=== PATIENT | male | born 1945 | race Caucasian/White ===

== ENCOUNTER → 2018-07-27 15:39 | Outpatient (CLI) | payer MEDICARE, OTHER, SELFPAY ==
[2018-07-27 16:32] LABS: Alanine Aminotransferase 34 IU/L (21-72); Albumin 4.1 g/dL (3.5-5.0); Albumin Globulin Ratio 1.5 (1.0-2.8); Alkaline Phosphatase 36 U/L (38-126); Aspartate Aminotransferase 28 IU/L (17-59); BUN Creatinine Ratio 24.2 (6-22); Bilirubin Total 0.4 mg/dL (0.2-1.3); Bilirubin Unconjugated 0.3 mg/dL (0.0-1.1); Blood Urea Nitrogen 29 mg/dL (9-20); Calcium 9.8 mg/dL (8.4-10.2); Carbon Dioxide 34 mmol/L (22-32); Chloride 104 mmol/L (98-107); Estimated Glomerular Filt Rate 59.5 mL/min (>60); Globulin 2.8 g/dL (1.7-4.1); Glucose 96 mg/dL (80-110); HEMOLYSIS < 15 (0-50); Sodium 142 mmol/L (137-145); Total Protein 6.9 g/dL (6.3-8.2)
[2018-07-27 16:44] LABS: Potassium 5.5 mmol/L (3.4-5.1)
[2018-07-27 16:46] LABS: Free T4, Direct Thyroxine 1.14 ng/dL (0.78-2.19)
[2018-07-27 17:00] LABS: Thyroid Stimulating Hormone 2.54 uIU/mL (0.47-4.68)
== END ==
PROVIDERS: Visit Provider Nurse Practitioner Family
DX: I48.91 Unspecified atrial fibrillation (principal)
CPT/HCPCS: 36415; 80053; 80076; 84439; 84443

== ENCOUNTER 2021-05-02 17:46 | Emergency (ER) | payer MEDICARE, OTHER, SELFPAY ==
[2021-05-02] VITALS (19 sets, daily range): BP systolic 108–150; BP diastolic 57–107; PULSE 51–120; RESP 16–25; TEMP 36.4; O2SAT 94–99; BMI 24.1
--- NOTE | 2021-05-02 18:00 | DI.RAD.S_ITS ---
PROCEDURE: XR CHEST 1V INDICATIONS: chest pain TECHNIQUE: One view of the chest was acquired. COMPARISON: None. FINDINGS: Surgical changes and devices: None. Lungs and pleura: Lungs are clear. No pleural effusions or pneumothorax. Mediastinum: Mediastinal contours appear normal. Heart size is normal. Bones and chest wall: No suspicious bony lesions. Overlying soft tissues appear unremarkable. IMPRESSION: No acute cardiopulmonary disease. Dictated by: Wilmer Dorman M.D. on 05/02/2021 at 18:27 Approved by: Wilmer Dorman M.D. on 05/02/2021 at 18:30
--- NOTE | 2021-05-02 18:06 | ED.ARRPALP ---
HPI - Arrhythmia/Palpitations General Chief Complaint: Arrhythmia/Palpitations Stated Complaint: afib, passing out Time Seen by Provider: 05/02/21 18:05 History of Present Illness HPI narrative: 76-year-old male nonsmoker with history of atrial fibrillation is on Eliquis and has been since 2017. He has been having difficulties with his medications as of late presents today with a chief complaint of a near syncopal episode and orthostatic hypotension as observed by EMS on scene. He was cardioverted most recently on April 23 at [facility]. In the aftermath of that cardioversion he became slowly and increasingly more bradycardic at which point he was taken off of his metoprolol, few days later he started becoming slightly more tachycardic and was put back on his metoprolol 50 mg daily. Today he was feeling dizzy and lightheaded upon standing and medics found a 40 point drop in his systolic pressure upon standing. He was brought here by his for evaluation. He was no longer orthostatic in our triage room. He states that he has had a poor appetite for the past few days which may correlate with his doctor started him on Lexapro. Otherwise he has had no medication or dietary change. He denies fever or chills. He has had no nausea, vomiting or diarrhea. He denies any urinary complaints such as dysuria, frequency or urgency. He denies any chest pain or shortness of breath. He cannot tell he is in AFib currently Review of Systems Review of Systems Narrative: GENERAL: Denies chills, fatigue, malaise, fever, sweats. HEENT: Denies sinus pain, ear pain, sore throat, difficulty swallowing, dizziness. RESPIRATORY: Denies dyspnea, cough, wheezing, hemoptysis, sputum. CARDIOVASCULAR: See HPI GASTROINTESTINAL: Denies nausea, vomiting, abdominal pain, diarrhea, constipation, melena. : Denies dysuria, frequency, incontinence, hematuria, urinary retention. MUSCULOSKELETAL: denies weakness, joint pain, or bony pain SKIN: Denies rash, skin lesions, or other NEUROLOGIC: Denies weakness, headache, numbness, change in speech, confusion, seizures, incoordination. PSYCHIATRIC: No concerning psychosocial issues. 12 point review of systems is negative except for those stated above Exam Narrative Exam Narrative: GENERAL: [76 year old patient appears stated age. Well-developed patient, in mild distress. HEAD: Atraumatic. Normocephalic. EYES: Pupils equal round and reactive. Extraocular motions intact. No scleral icterus. No injection or drainage. ENT: Nose without bleeding, purulent drainage. Throat without erythema, tonsillar hypertrophy or exudate. Airway patent. NECK: Trachea midline. Non tender CARDIOVASCULAR: Tachycardic and irregular rhythm without murmurs, gallops, or rubs. RESPIRATORY: Clear to auscultation. Breath sounds equal bilaterally. No wheezes, rales, or rhonchi. GASTROINTESTINAL: Abdomen soft, non-tender, nondistended. EXTREMITIES: No edema or joint tenderness. BACK: Nontender without deformity or crepitance. No flank tenderness. NEURO: AOx3. SKIN: No rash or erythema of visible areas Initial Vital Signs Initial Vital Signs: Vital Signs Temperature 97.6 F 05/02/21 17:56 Pulse Rate 120 H 05/02/21 17:56 Respiratory Rate 16 05/02/21 17:56 Blood Pressure 108/71 05/02/21 17:56 Pulse Oximetry 97 05/02/21 17:56 Procedures Cardioversion Consent Signed: Yes Indication: rapid atrial fib / atrial flutter Stability: Stable Number of attempts (shocks): 1 Joules used: 120 Cardiac rhythm post-cardioversion: NSR in the 50s-60s Procedural Sedation Consent signed: Yes Time out performed: Yes Indication: cardioversion ASA Class: II Mallampati Airway Classification: Class II Preparation: property assessment monitor applied, pulse oximeter, capnometry used, supplemental O2 applied, suction/airway equipment at bedside and IV secured IV Propofol dose (mg): 50 Intraservice time/total sedation time (min): 12 ED Sedation Level: Moderate (Concious) Patient Tolerated Procedure: Well Complications: Respiratory Depression-Repositioning Required Interventions: Airway repositioned Course Orders Ordered: ED Orders 05/02/21 18:00 XR chest 1V Stat EKG-12 Lead Stat 05/02/21 18:10 Complete Blood Count AUTO DIFF Stat Comprehensive Metabolic Panel Stat Lipase Stat Magnesium Stat Partial Thromboplastin Time Stat Prothrombin Time INR Stat Troponin & CK Cardiac Panel Stat Discontinued Medications Sodium Chloride (Normal Saline 0.9%) 500 mls @ 1,000 mls/hr IV BOLUS ONE Stop: 05/02/21 18:49 Last Infusion: 05/02/21 21:43 Dose: 0 mls/hr Documented by: Admin: 05/02/21 19:20 Dose: 1,000 mls/hr Documented by: RAYNA Propofol (Propofol 200 Mg/20 Ml Vial) 85 mg 1 mg/kg (85 mg) IV NOW ONE Stop: 05/02/21 20:33 Last Admin: 05/02/21 21:42 Dose: 60 mg Documented by: SAURABH Consultations Consultation #1: call to Dr. Orozco ([facility]). We have discussed the patient's case and he recommends changing Metoprolol to 25mg PO on MW and 50 on ,,, Tue. Calling cardio office Tuesday to get a repeat EKG Vital Signs Vital signs: Vital Signs - 8 hr 05/02/21 17:56 05/02/21 18:37 05/02/21 19:00 Temperature 97.6 F Pulse Rate 120 H 113 H 106 H Respiratory Rate 16 23 18 Blood Pressure 108/71 Pulse Oximetry 97 94 94 05/02/21 19:30 05/02/21 20:00 05/02/21 20:25 Temperature Pulse Rate 107 H 105 H 104 H Respiratory Rate 16 22 17 Blood Pressure 133/93 H Pulse Oximetry 96 96 98 05/02/21 20:28 05/02/21 20:30 05/02/21 20:31 Temperature Pulse Rate 113 H 115 H 117 H Respiratory Rate 18 17 17 Blood Pressure 150/107 H 149/90 H 136/82 Pulse Oximetry 98 98 98 05/02/21 21:00 05/02/21 21:30 05/02/21 21:31 Temperature Pulse Rate 113 H 110 H 109 H Respiratory Rate 21 22 Blood Pressure 147/102 H Pulse Oximetry 98 98 98 05/02/21 21:35 05/02/21 21:36 05/02/21 21:38 Temperature Pulse Rate 51 L 52 L 53 L Respiratory Rate 25 H 23 19 Blood Pressure 125/76 128/71 Pulse Oximetry 98 96 98 05/02/21 21:41 05/02/21 21:45 05/02/21 22:00 Temperature Pulse Rate 53 L 52 L 53 L Respiratory Rate 21 21 17 Blood Pressure 126/62 110/57 L 125/65 Pulse Oximetry 99 99 96 03/26/22 22:15 Temperature Pulse Rate 53 L Respiratory Rate 16 Blood Pressure 123/69 Pulse Oximetry 98 MDM - Arrhythmia/Palpitations Lab Data Result diagrams: 05/02/21 18:10 05/02/21 18:10 Labs: Lab Results 05/02/21 05/02/21 05/02/21 Range/Units 18:10 18:10 18:10 WBC 7.7 (4.5-11.0) X10^3/uL RBC 4.98 (4.5-5.9) X10^6/uL Hgb 16.2 (13.5-17.5) g/dL Hct 46.5 (41-53) % MCV 93.4 (80-100) fL MCH 32.5 (26-34) PG MCHC 34.8 (30-36) % RDW 13.2 (11.6-14.8) % Plt Count 289 (150-400) X10^3/uL Neut % (Auto) 62.5 (50-75) % Lymph % (Auto) 25.5 (25-40) % Polk % (Auto) 10.8 (3-14) % Eos % (Auto) 0.3 L (2-4) % Baso % (Auto) 0.9 (0-2) % Neut # (Auto) 4800 (6333-9226) /uL Lymph # (Auto) 2000 (9517-2645) /uL Polk # (Auto) 800 (0-900) /uL Eos # (Auto) 0 (0-450) /uL Baso # (Auto) 100 (0-100) /uL PT 18.1 H (10.1-12.7) SECONDS INR 1.6 H (0.9-1.3) APTT 36 (26.4-36.2) SECONDS Sodium 136 L (137-145) mmol/L Potassium 4.2 (3.4-5.1) mmol/L Chloride 101 (98-107) mmol/L Carbon Dioxide 29 (22-32) mmol/L BUN 28 H (9-20) mg/dL Creatinine 1.48 H (0.66-1.25) mg/dL Estimated GFR 46.3 L (>60) mL/min BUN/Creatinine Ratio 18.9 (6-22) Glucose 84 (80-110) mg/dL Calcium 9.8 (8.4-10.2) mg/dL Magnesium 2.3 (1.6-2.3) mg/dL Total Bilirubin 0.7 (0.2-1.3) mg/dL AST 25 (17-59) IU/L ALT 23 (<50) IU/L Alkaline Phosphatase 37 L (38-126) U/L Total Creatine Kinase 38 L (55-170) U/L CK-MB (CK-2) TNP CK-MB (CK-2) Rel Index TNP Troponin I < 0.012 (0.01-0.034) ng/mL Total Protein 7.6 (6.3-8.2) g/dL Albumin 4.4 (3.5-5.0) g/dL Globulin 3.2 (1.7-4.1) g/dL Albumin/Globulin Ratio 1.4 (1.0-2.8) Lipase 118 (23-300) U/L Imaging Data Chest x-ray: Radiologist's Impresson: Chart Viewer Diagnostics Subcategory All Activity ??:?? All Time ??:?? All Subcategories Filter Laboratory Imaging Microbiology Pathology Blood Bank Tests Cardiovascular Other Specialty DATE TYPE STATUS REF RANGE/AUTHOR Hx 05/02/21 18:00 Chest X-Ray Signed Flavio Dormanmatilde Cathi Felipe Rebecca ED 76, M?1945 MRN#? [id number] DEP ER,?Main ED??? 185.42cm 83.007kg BMI: 24.1kg/m? Arrhythmia/Palpitations Acc#? [id number] Resus Status Not Ordered No Hx Avail Special Indicators No Data to Display Home Meds Prescription Monitoring Program No Data to Display Allergies No Data to Display Problems ? ONSET Atrial fibrillation Vital Signs 05/02/21 22:15 BP 123/69? Pulse 53?L Resp 16? O2 Sat 98? Diagnostics Reports NasraFelipe locke Rebecac??76??M??1945 ? Allergy/Adv: Not Recorded Close Chest X-Ray (Signed) Mary Dorman - 05/02/21 Launch?[address] [address] XRay Report Signed Patient: Felipe Winkler MR#: [id number] : 1945 Acct:[id number] Age/Sex: 76 / M Date of Service: 05/02/21 Loc: ED Accession Number: [id number] ?? Procedure: XR chest 1V Ordering Provider: Nasim Marquez D.O. PROCEDURE:? XR CHEST 1V ? INDICATIONS:? chest pain ? TECHNIQUE:? One view of the chest was acquired.? ? COMPARISON:? None. ? FINDINGS:? ? Surgical changes and devices:? None.? ? Lungs and pleura:? Lungs are clear.? No pleural effusions or pneumothorax.? ? Mediastinum:? Mediastinal contours appear normal.? Heart size is normal.? ? Bones and chest wall:? No suspicious bony lesions.? Overlying soft tissues appear unremarkable.? ? IMPRESSION:? No acute cardiopulmonary disease. ? ? ? Dictated by: Wilmer Dorman M.D. on 05/02/2021 at 18:27 ? ? Approved by: Wilmer Dorman M.D. on 05/02/2021 at 18:30 ? ECG Data Interpretation: EK-1 atrial flutter at 110 beats per minute. No ectopy or signs of ischemia such as ST elevations or depressions nor T-wave inversions Discharge Plan Departure Patient Disposition: Home Clinical Impression: Atrial fibrillation Instructions: DI for Atrial Fibrillation Activity Restrictions/Additional Instructions: *You have been diagnosed with [rapid atrial fibrillation with procedural sedation and electrocardioversion. *What to do: * per my discussion with on-call Cardiology at [facility] please change your metoprolol dose to 25 mg on Mondays, Wednesdays and Fridays. Otherwise your medications and dosages will remain unchanged *Please follow up with your hauling contractor on Tuesday, call for an appointment. Let them know you were seen in the Emergency Department and that we ask that you be seen in follow up. Let them know Dr. Marquez spoke with Dr. Orozco and he wants you to get an EKG on Tuesday. *Return to Emergency Department if you should have any new, worsening or concerning symptoms, such as [fever greater than 101 F, shaking chills, worsening pain, persistent vomiting or other bothersome symptoms]
[2021-05-02 18:51] LABS: Add Manual Diff / Slide Review NO; Basophils Absolute Auto 100 /uL (0-100); Basophils Percent Auto 0.9 % (0-2); Eosinophils Absolute Auto 0 /uL (0-450); Eosinophils Percent Auto 0.3 % (2-4); Hematocrit 46.5 % (41-53); Hemoglobin 16.2 g/dL (13.5-17.5); Lymphocytes Absolute Auto 2000 /uL (1100-4500); Lymphocytes Percent Auto 25.5 % (25-40); Mean Corpuscular HGB Conc 34.8 % (30-36); Mean Corpuscular Hemoglobin 32.5 PG (26-34); Mean Corpuscular Volume 93.4 fL (80-100); Monocytes Absolute Auto 800 /uL (0-900); Monocytes Percent Auto 10.8 % (3-14); Neutrophils Absolute Auto 4800 /uL (1500-7000); Neutrophils Percent Auto 62.5 % (50-75); Platelet Count 289 X10^3/uL (150-400); Red Blood Cell Count 4.98 X10^6/uL (4.5-5.9); Red Cell Distribution Width 13.2 % (11.6-14.8); White Blood Cell Count 7.7 X10^3/uL (4.5-11.0)
[2021-05-02 19:06] LABS: INR 1.6 (0.9-1.3); Prothrombin Time 18.1 SECONDS (10.1-12.7)
[2021-05-02 19:08] LABS: PTT Partial Thromboplastin Tim 36 SECONDS (26.4-36.2)
[2021-05-02 19:09] LABS: Alanine Aminotransferase 23 IU/L (<50); Albumin 4.4 g/dL (3.5-5.0); Albumin Globulin Ratio 1.4 (1.0-2.8); Alkaline Phosphatase 37 U/L (38-126); Aspartate Aminotransferase 25 IU/L (17-59); BUN Creatinine Ratio 18.9 (6-22); Bilirubin Total 0.7 mg/dL (0.2-1.3); Blood Urea Nitrogen 28 mg/dL (9-20); Calcium 9.8 mg/dL (8.4-10.2); Carbon Dioxide 29 mmol/L (22-32); Chloride 101 mmol/L (98-107); Creatine Kinase 38 U/L (55-170); Estimated Glomerular Filt Rate 46.3 mL/min (>60); Globulin 3.2 g/dL (1.7-4.1); Glucose 84 mg/dL (80-110); HEMOLYSIS < 15 (0-50); Lipase 118 U/L (23-300); Magnesium 2.3 mg/dL (1.6-2.3); Potassium 4.2 mmol/L (3.4-5.1); Sodium 136 mmol/L (137-145); Total Protein 7.6 g/dL (6.3-8.2)
[2021-05-02] MEDS: SODIUM CHLORIDE 0.9% 500 ML 1000 ML IV (19:20)
[2021-05-02 19:21] LABS: Troponin I < 0.012 ng/mL (0.01-0.034)
[2021-05-02] MEDS: propofoL 200 MG/20 ML VIAL 85 MG IV (21:42)
== END 2021-05-02 22:38 | disposition home or self-care (01) ==
PROVIDERS: Emergency Provider Emergency Medicine
DX: I48.91 Unspecified atrial fibrillation (principal); Z79.01 Long term (current) use of anticoagulants
CPT/HCPCS: 36415; 71045; 80053; 82550; 83690; 83735; 84484; 85025; 85610; 85730; 92960; 93005; 96360; 96361; 99152; 99284; 99285; J2704

== ENCOUNTER 2021-06-10 09:51 | Day surgery (SDC) | payer MEDICARE, OTHER, SELFPAY ==
[2021-06-10] VITALS (7 sets, daily range): BP systolic 133–160; BP diastolic 61–74; PULSE 56–74; RESP 14–16; TEMP 35.9–36.6; O2SAT 94–99
[2021-06-10] MEDS: ACETAMINOPHEN 325 MG TABLET 975 MG PO (10:20)
[2021-06-10] MEDS: LACTATED RINGERS 1,000 ML 42 ML IV (10:21)
[2021-06-10] MEDS: CELECOXIB 200 MG CAPSULE PO (10:21)
--- NOTE | 2021-06-10 10:44 | PM.PREOP ---
Pre-operative Note COVID-19 COVID-19 status: Negative Result date/Date tested (Pos, Neg/Pending): 06/09/21 Interval Note History & Physical reviewed/Exam performed by Physician: Yes Changes to H&P: No
--- NOTE | 2021-06-10 10:45 | SUR.PREOP ---
States that he did not bring his hearing aid for the left ear.
--- NOTE | 2021-06-10 11:28 | SUR.PREOP ---
Block start time [1118] . Monitoring initiated and maintained throughout procedure. Medications given by anesthesiologist. Patient remained stable throughout procedure, no adverse reactions noted. Patient awake and talking throughout the procedure. Block end time [1128].
--- NOTE | 2021-06-10 11:28 | SUR.OPER ---
Beach chair on padded OR bed. Head on gel donut secured with tape over gauze. Non-operative arm secured <90 degrees abduction on padded arm board. Pillow under knees. Safety belt at thigh. Cloth tape over blanket over lower legs. Heels on gel pad. Directed and approved by surgeon
[2021-06-10] MEDS: CEFAZOLIN 2 GM/20 ML SYRINGE IV (11:47)
[2021-06-10] MEDS: BUPIVACAINE 0.5% (PF) 30 ML, EPINEPHrine 0.15 MG INJ (12:15)
--- NOTE | 2021-06-10 13:13 | PM.OP.1 ---
Operative Date/Time/Diagnoses Date of procedure: 06/10/21 Time of procedure: 13:13 Pre-op diagnosis: Right shoulder subscapularis rupture, chronic Post-op diagnosis: same Procedure & Clinicians Procedure: 1. Pectoralis major muscle transfer 2. Biceps tenodesis, open Same procedure as scheduled: No (The subscapularis was irreparable.) Indications: Patient is a 76-year-old gentleman who injured his right shoulder and has had difficulty with movement of the arm since. His MRI shows a nearly complete rupture including the upper 2/3 of the subscapularis. He has agreed to surgery after discussion the risks benefits and alternatives. Risks discussed included but were not limited to: Stiffness, infection, nerve damage, deep venous thrombosis, pulmonary embolism, stroke, myocardial infarction, permanent paralysis, aspiration pneumonia and . In addition we did discuss the possibility of the tear being a reparable and the need for a pectoralis major tendon transfer. Surgeon: [facility] Dentist: Yojana Almendarez Anesthesia Type: General, Peripheral nerve block and Local Operative Notes Findings: Irreparable tear of the upper 2/3 of the subscapularis. Inflammation of the biceps tendon. Closure Type: primary Specimen(s): none sent Prosthetic devices, grafts, tissues, transplants, or devices: Implants used in this procedure included a single Mitek Healix Advance BR 5.5 mm triple threaded anchor Applied: implant(s) Estimated Blood Loss (mL): 50 Blood products transfused: none Procedure in detail: The patient was seen in the preoperative area where he identified his right shoulder as the operative site this was signed with my initials. He underwent an interscalene block and then was taken to the operating room placed on the operating room table in the supine position where he underwent a general anesthetic. He received preoperative antibiotics. A curriculum and assessment coordinator-out was performed. He was repositioned in the ?beach chair? position and the right arm was prepared with ChloraPrep from the fingertips to the base the neck and draped free. The anterior shoulder was approached an approximately 6 cm incision overlying the deltopectoral interval. The vein was taken laterally. The subdeltoid bursa was reestablished from scar tissue. The scar tissue sheath on the anterior shoulder was incised to allow access to the underlying subscapularis. The upper 2/3 of the tendon had ruptured. Careful inspection showed that there was no way to mobilize the remaining subscapularis. At this point I elected to perform a a pectoralis major tendon transfer. The biceps was released from its insertion on the supraglenoid tubercle and tenodesed over the top of the bicipital groove with a 2. Ethibond suture. The upper portion of the lesser tuberosity was debrided to bleeding bone with a bur. A single anchor was placed. The upper cm and a half of the deep head of the pectoralis major was harvested and mobilized to allow it to have enough travel to make it to the lesser tuberosity. A Krackow stitch with 2. Ethibond was placed in the pectoralis major tendon. Two of the anchor sutures were placed through the tendon and then the Krackow stitch was used to suture the tendon to the leading edge of the supraspinatus. The anchor stitches were then tied to approximate the tendon to the lesser tuberosity. The 3rd stitch from anchor was discarded. The wound was then irrigated. Closure was obtained with interrupted 3-0 Vicryl the subcutaneous layer followed by 3-0 Quill suture for the skin and Dermabond. An Aquacel Ag dressing was then applied. The patient was subsequently allowed to awaken from anesthesia and taken to the recovery room in good condition having tolerated the procedure well. Complications: none Post-operative Condition: stable Disposition: PACU Plan for aftercare: Patient will be maintained on a standard subscapularis repair protocol which should protect the muscle transfer. He will be discharged today with follow-up in the office in 10-14 days. He has been given a prescription for oxycodone previously.
--- NOTE | 2021-06-10 13:33 | SUR.PHASEI ---
Pt handed off to Kylah MARINELLI Computational Geneticist no longer caring for pt.
--- NOTE | 2021-06-10 15:09 | SUR.PHASEII ---
06/10/[id number]-exsrzry meets discharge criteria. assisted w/clothing & reapplication of sling. rt arm w/out pain. rt arm intrascalene block effective-weak/limited mobility. Given postop instructions by phone to , and verbally to patient . Discussed safety of Rt arm with block in effect. per PA can resume elequist tomorrow. iv out. to car with all belongings at 1445. gait steady.
== END 2021-06-10 14:45 | disposition home or self-care (01) ==
PROVIDERS: PCP Family Medicine; Referring Provider Orthopaedic Surgery; Visit Provider Orthopaedic Surgery
PROC: (CPT 29827; principal; 2021-06-10 11:15)
DX: S46.011A Strain of muscle(s) and tendon(s) of the rotator cuff of right shoulder, initial encounter (principal)
CPT/HCPCS: 23395; 64450; J0171; J0690; J2250; J3010

== ENCOUNTER 2024-01-02 16:21 | Emergency (ER) | payer MEDICARE, OTHER, SELFPAY ==
[2024-01-02] VITALS (21 sets, daily range): BP systolic 117–164; BP diastolic 65–128; PULSE 43–125; RESP 18–30; TEMP 35.7; O2SAT 93–100; BMI 25.0
--- NOTE | 2024-01-02 16:32 | EKG_ITS ---
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
--- NOTE | 2024-01-02 16:32 | DI.RAD.S_ITS ---
PROCEDURE: XR CHEST 1V INDICATIONS: chest pain TECHNIQUE: One view of the chest was acquired. COMPARISON: [facility], CR, XR CHEST 1V, 05/02/2021, 18:12. FINDINGS: Surgical changes and devices: None. Lungs and pleura: Lungs are clear. No pleural effusions or pneumothorax. Mediastinum: Mediastinal contours appear normal. Heart size is normal. Bones and chest wall: No suspicious bony lesions. Overlying soft tissues appear unremarkable. IMPRESSION: No acute cardiopulmonary abnormality is seen. Dictated by: Cruz Loya M.D. on 01/02/2024 at 17:23 Approved by: Cruz Loya M.D. on 01/02/2024 at 17:23
[2024-01-02 16:58] LABS: Add Manual Diff / Slide Review NO; Basophils Absolute Auto 100 /uL (0-100); Basophils Percent Auto 1.1 % (0-2); Eosinophils Absolute Auto 100 /uL (0-450); Eosinophils Percent Auto 1.6 % (2-4); Hematocrit 44.3 % (41-53); Hemoglobin 14.8 g/dL (13.5-17.5); Lymphocytes Absolute Auto 2600 /uL (1100-4500); Lymphocytes Percent Auto 31.7 % (25-40); Mean Corpuscular HGB Conc 33.5 % (30-36); Mean Corpuscular Hemoglobin 31.9 PG (26-34); Mean Corpuscular Volume 95.4 fL (80-100); Monocytes Absolute Auto 700 /uL (0-900); Monocytes Percent Auto 9.1 % (3-14); Neutrophils Absolute Auto 4600 /uL (1500-7000); Neutrophils Percent Auto 56.5 % (50-75); Platelet Count 210 X10^3/uL (150-400); Red Blood Cell Count 4.64 X10^6/uL (4.5-5.9); Red Cell Distribution Width 12.8 % (11.6-14.8); White Blood Cell Count 8.1 X10^3/uL (4.5-11.0)
[2024-01-02 17:03] LABS: INR 1.3 (0.9-1.3); Prothrombin Time 14.7 SECONDS (9.4-12.5)
[2024-01-02 17:06] LABS: PTT Partial Thromboplastin Tim 39 SECONDS (25.1-36.5)
[2024-01-02 17:08] LABS: Alanine Aminotransferase 27 IU/L (<50); Albumin 4.5 g/dL (3.5-5.0); Albumin Globulin Ratio 1.6 (1.0-2.8); Alkaline Phosphatase 40 U/L (38-126); Aspartate Aminotransferase 33 IU/L (17-59); BUN Creatinine Ratio 24.8 (6-22); Bilirubin Total 0.6 mg/dL (0.2-1.3); Blood Urea Nitrogen 26 mg/dL (9-20); Calcium 9.3 mg/dL (8.4-10.2); Carbon Dioxide 30 mmol/L (22-32); Chloride 104 mmol/L (98-107); Creatine Kinase 63 U/L (55-170); Estimated Glomerular Filt Rate > 60 mL/min (>60); Globulin 2.8 g/dL (1.7-4.1); Glucose 88 mg/dL (80-110); HEMOLYSIS < 15 (0-50); Lipase 83 U/L (23-300); Magnesium 2.2 mg/dL (1.6-2.3); Potassium 4.8 mmol/L (3.4-5.1); Sodium 139 mmol/L (137-145); Total Protein 7.3 g/dL (6.3-8.2)
[2024-01-02 17:20] LABS: NT-proBNP (BNP-Adult 18+) 1700 pg/mL (<450); Troponin I < 0.012 ng/mL (0.01-0.034)
--- NOTE | 2024-01-02 19:43 | ED.ARRPALP ---
HPI - Arrhythmia/Palpitations General Chief Complaint: Arrhythmia/Palpitations Stated Complaint: sent by PCP, for cardiac issue Time Seen by Provider: 01/02/24 19:43 Source: patient, family, RN notes reviewed and old records reviewed Limitations: no limitations History of Present Illness HPI narrative: 78-year-old male history of atrial fibrillation on Eliquis daily, dyslipidemia with prior ablation who presents with complaint of atrial fibrillation since December 16. Patient states he had an ablation about 2-1/2 years ago in sinus rhythm and has not had any issues until around December 16 started to notice that he was having irregular heartbeat sometimes felt fast occasionally has felt slow. He is felt lightheaded he has not had any syncope but felt like he might pass out. He has been quite tired and fatigued. He denies any chest pain, no shortness of breath. No nausea or vomiting no diaphoresis. No new swelling in extremities. In his state his heart rates bounced between 140s and 48 beats per minute the 1st several days he was more regular and tachycardic day reached out to his cardiology team and spoke to nurse practitioner Irish crawley who recommended starting him on metoprolol. Patient has been very sensitive to this medication in the past she told them to hold it if his systolic blood pressure was less than 100 so he has not been receiving it regularly. They re-contacted her so she told them to start digoxin but he has not taken any is his heart rates been slow. They reached out to Dr. Enriquez specifically he has been scheduled for a cardioversion on January 19 but they note he is persistently 5 well. Saw primary care today who referred him to the ER. Patient is on Eliquis daily, he takes sertraline, pravastatin used to take amiodarone prior to his ablation. They note he is very sensitive to metoprolol and gets low blood pressure very easily even at low doses. Related Data Home Medications Medication Instructions Recorded Confirmed amiodarone 200 mg tablet 200 mg PO DAILY 06/09/21 06/10/21 apixaban 5 mg tablet 5 mg PO BID 06/09/21 06/10/21 pravastatin 20 mg tablet 20 mg PO DAILY 06/09/21 06/10/21 Previous Rx's Medication Instructions Recorded oxycodone 5 mg tablet 5 mg PO Q4H PRN Pain, Moderate 06/10/21 (4-6) #40 tabs amiodarone 100 mg tablet (Pacerone) 100 mg PO TID #30 tabs 01/02/24 Allergies Allergy/AdvReac Type Severity Reaction Status Date / Time No Known Drug Allergies Allergy Verified 06/10/21 10:14 Review of Systems Review of Systems ROS Unobtainable: All systems reviewed & are unremarkable except as noted in HPI and below Patient History Medical History Hearing loss in right ear Hearing loss in left ear DJD (degenerative joint disease) Hyperlipidemia Fracture of leg History of cardioversion (04/23/21) Cerebrovascular accident, embolic (11/2016) Atrial flutter Social History household members: spouse Smoking Status: Never smoker alcohol intake: former Smoking Status: Never smoker Substance Use Type: does not use Exam Narrative Exam Narrative: GENERAL: Alert and oriented x three, well-appearing male in mild distress HEENT: Head normocephalic, atraumatic, EOMI, pupils reactive, face symmetric, moist mucous membranes NECK: Supple, full range of motion CARDIOVASCULAR: Irregularly irregular rate and rhythm without murmurs, rubs or gallops. No JVD. No edema bilateral lower extremities. RESPIRATORY: Breath sounds equal bilaterally, no wheezes rales or rhonchi. ABDOMEN: Soft, nontender. Normoactive bowel sounds all 4 quadrants. No guarding or rebound, rigidity, no mass : No CVA tenderness EXTREMITIES: Normal range of motion, no clubbing or edema. Neurovascularly intact NEUROLOGICAL: Cranial nerves II through XII grossly intact. Moving all extremities SKIN: Warm, dry, no petechiae, no rashes or lesions. Initial Vital Signs Initial Vital Signs: Vital Signs Temperature 96.3 F L 01/02/24 16:26 Pulse Rate 43 L 01/02/24 16:26 Respiratory Rate 18 01/02/24 16:26 Blood Pressure 164/103 H 01/02/24 16:26 Pulse Oximetry 98 01/02/24 16:26 Oxygen Delivery Method Room Air 01/02/24 16:26 Procedures Cardioversion Consent Signed: Yes Indication: Atrial fibrillation RVR Stability: Stable Number of attempts (shocks): 2 Joules used: 150 Cardiac rhythm post-cardioversion: afib rate controlled Procedural Sedation Consent signed: Yes Time out performed: Yes Indication: cardioversion ASA Class: II Mallampati Airway Classification: Class II Time of Last PO Intake: 15:00 Preparation: panel monitor applied, pulse oximeter, capnometry used, supplemental O2 applied, suction/airway equipment at bedside and IV secured IV Propofol dose (mg): 85 ED Sedation Level: Moderate (Concious) Patient Tolerated Procedure: Well and No complications Complications: hypoxia Interventions: Airway repositioned and Oxygen applied Course Orders Ordered: ED Orders 01/02/24 22:09 EKG-12 Lead Stat Discontinued Medications Amiodarone HCl (Amiodarone 200 Mg Tablet) 100 mg PO NOW ONE Stop: 01/02/24 22:34 Last Admin: 01/02/24 22:46 Dose: 100 mg Documented By: EDILIA Aspirin (Aspirin 81 Mg Chew Tab) 324 mg PO NOW ONE Stop: 01/02/24 16:33 Last Admin: 01/02/24 21:33 Dose: Not Given Documented By: EDILIA Propofol (Propofol 200 Mg/20 Ml Vial) 85 mg 1 mg/kg (85 mg) IV NOW ONE Stop: 01/02/24 21:12 Last Admin: 01/02/24 21:57 Dose: 85 mg Documented By: EDILIA Vital Signs Vital signs: Vital Signs - 8 hr 01/02/24 19:52 01/02/24 19:54 01/02/24 19:54 Pulse Rate 65 86 Respiratory Rate 22 Blood Pressure 148/75 H Pulse Oximetry 97 Oxygen Delivery Method 01/02/24 20:00 01/02/24 20:00 01/02/24 20:30 Pulse Rate 119 H 72 Respiratory Rate 21 19 Blood Pressure 153/79 H Pulse Oximetry 97 97 Oxygen Delivery Method 01/02/24 20:30 01/02/24 21:00 01/02/24 21:01 Pulse Rate 120 H 125 H Respiratory Rate 25 H 19 Blood Pressure 149/74 H Pulse Oximetry 95 96 Oxygen Delivery Method 01/02/24 21:01 01/02/24 21:30 01/02/24 21:30 Pulse Rate 122 H Respiratory Rate 20 Blood Pressure 151/106 H 140/107 H Pulse Oximetry 97 Oxygen Delivery Method 01/02/24 21:34 01/02/24 21:34 01/02/24 21:36 Pulse Rate 114 H Respiratory Rate 28 H Blood Pressure 142/114 H 161/128 H Pulse Oximetry 96 Oxygen Delivery Method 01/02/24 21:36 01/02/24 22:00 01/02/24 22:01 Pulse Rate 119 H 76 74 Respiratory Rate 23 21 24 Blood Pressure Pulse Oximetry 99 93 99 Oxygen Delivery Method Room Air 01/02/24 22:01 01/02/24 22:02 01/02/24 22:02 Pulse Rate 71 Respiratory Rate 24 Blood Pressure 140/77 141/82 H Pulse Oximetry 100 Oxygen Delivery Method 01/02/24 22:03 01/02/24 22:03 01/02/24 22:06 Pulse Rate 72 Respiratory Rate 22 Blood Pressure 144/76 H 117/65 Pulse Oximetry 100 Oxygen Delivery Method Non -Rebreather 01/02/24 22:06 01/02/24 22:10 01/02/24 22:10 Pulse Rate 70 72 Respiratory Rate 26 H 24 Blood Pressure 124/72 Pulse Oximetry 99 99 Oxygen Delivery Method Non -Rebreather Non -Rebreather 01/02/24 22:15 01/02/24 22:15 01/02/24 22:20 Pulse Rate 74 71 Respiratory Rate 20 21 Blood Pressure 138/73 Pulse Oximetry 99 98 Oxygen Delivery Method Room Air 01/02/24 22:20 01/02/24 22:25 01/02/24 22:25 Pulse Rate 71 Respiratory Rate 18 Blood Pressure 119/67 130/70 Pulse Oximetry 98 Oxygen Delivery Method 01/02/24 22:30 01/02/24 22:30 01/02/24 22:35 Pulse Rate 71 66 Respiratory Rate 22 30 H Blood Pressure 119/72 Pulse Oximetry 97 97 Oxygen Delivery Method 01/02/24 22:35 Pulse Rate Respiratory Rate Blood Pressure 127/72 Pulse Oximetry Oxygen Delivery Method MDM - Arrhythmia/Palpitations Lab Data 01/02/24 16:40 01/02/24 16:40 Labs: Lab Results 01/02/24 Range/Units 16:40 WBC 8.1 (4.5-11.0) X10^3/uL RBC 4.64 (4.5-5.9) X10^6/uL Hgb 14.8 (13.5-17.5) g/dL Hct 44.3 (41-53) % MCV 95.4 (80-100) fL MCH 31.9 (26-34) PG MCHC 33.5 (30-36) % RDW 12.8 (11.6-14.8) % Plt Count 210 (150-400) X10^3/uL Neut % (Auto) 56.5 (50-75) % Lymph % (Auto) 31.7 (25-40) % [place] % (Auto) 9.1 (3-14) % Eos % (Auto) 1.6 L (2-4) % Baso % (Auto) 1.1 (0-2) % Neut # (Auto) 4600 (2100-3775) /uL Lymph # (Auto) 2600 (0896-9643) /uL [place] # (Auto) 700 (0-900) /uL Eos # (Auto) 100 (0-450) /uL Baso # (Auto) 100 (0-100) /uL PT 14.7 H (9.4-12.5) SECONDS INR 1.3 (0.9-1.3) APTT 39 H (25.1-36.5) SECONDS Sodium 139 (137-145) mmol/L Potassium 4.8 (3.4-5.1) mmol/L Chloride 104 (98-107) mmol/L Carbon Dioxide 30 (22-32) mmol/L BUN 26 H (9-20) mg/dL Creatinine 1.05 (0.66-1.25) mg/dL Estimated GFR > 60 (>60) mL/min BUN/Creatinine Ratio 24.8 H (6-22) Glucose 88 (80-110) mg/dL Calcium 9.3 (8.4-10.2) mg/dL Magnesium 2.2 (1.6-2.3) mg/dL Total Bilirubin 0.6 (0.2-1.3) mg/dL AST 33 (17-59) IU/L ALT 27 (<50) IU/L Alkaline Phosphatase 40 (38-126) U/L Total Creatine Kinase 63 (55-170) U/L Troponin I < 0.012 (0.01-0.034) ng/mL NT-Pro-B Natriuret Pep 1700 H (<450) pg/mL Total Protein 7.3 (6.3-8.2) g/dL Albumin 4.5 (3.5-5.0) g/dL Globulin 2.8 (1.7-4.1) g/dL Albumin/Globulin Ratio 1.6 (1.0-2.8) Lipase 83 (23-300) U/L Imaging Data Chest x-ray: Radiologist's Impresson: Close Chest X-Ray (Signed) Cruz Loya - 01/02/24 Telemetry Strips 06/10/21 Telemetry Strips 06/10/21 Chest X-Ray (Signed) Mary Dorman - 05/02/21 Launch?Image [address] [address] XRay Report Signed Patient: Felipe Winkler MR#: [id number] : 1945 Acct:[id number] Age/Sex: 78 / M Date of Service: 01/02/24 Loc: ED Accession Number: [id number] Procedure: XR chest 1V Ordering Provider: Liv Garcia D.O. PROCEDURE: XR CHEST 1V INDICATIONS: chest pain TECHNIQUE: One view of the chest was acquired. COMPARISON: [facility], , XR CHEST 1V, 05/02/2021, 18:12. FINDINGS: Surgical changes and devices: None. Lungs and pleura: Lungs are clear. No pleural effusions or pneumothorax. Mediastinum: Mediastinal contours appear normal. Heart size is normal. Bones and chest wall: No suspicious bony lesions. Overlying soft tissues appear unremarkable. IMPRESSION: No acute cardiopulmonary abnormality is seen. Dictated by: Cruz Loya M.D. on 01/02/2024 at 17:23 Approved by: Cruz Loya M.D. on 01/02/2024 at 17:23 ECG Data Attestation: I personally reviewed and interpreted this ECG as follows: Prior ECG tracings: available for review Interpretation: Atrial flutter with a AV block, rate 84 NM 86 QRS of 444, no acute ST elevation or depression noted. Patient has prior from 05/02/2021 which showed atrial fibrillation at that time. EKG 2. Rate of 76 irregularly irregular with a P waves dispersed throughout. Rate 76 QRS is 80 QTC is 429. MDM Narrative Medical decision making narrative: Labs show white count 8.1 hemoglobin of 14 platelets of 210. INR 1.3. Electrolytes are normal BUN is 26 creatinine is 1.05 improved from April of 2021 glucose is 88 LFTs are negative troponins less than 0.012 with a BNP of 1700 Chest x-ray shows no acute change EKG shows P waves which appeared to be marching through in irregular irregular rate of QRS is. [address] Alegria [facility] if patient is amenable to cardioversion would be appropriate if successful can either not start any medications and continue his Eliquis or can started on amiodarone 100 mg b.i.d.. If unsuccessful she would recommend amiodarone 100 mg t.i.d. without a loading dose. Patient family were agreeable to cardioversion. Post cardioversion patient rate is improved at 76 has a little bit of motion artifact but does not appear to have P waves regularly through out and still be in AFib. Discussed with patient and family he is rate controlled we will start oral amiodarone 100 mg t.i.d. as recommended by Dr. Alegria. They are to reach out tomorrow for any medication adjustments, discussed return precautions patient is still scheduled for cardioversion on January 19. Patient is feeling improved afterwards and feels comfortable with disposition home. First dose of amiodarone was given here with a prescription sent to [facility] in [place]. Critical Care Time Critical Care Time Critical Care Time: Yes Total Critical Care Time: 35 Attestation: The high probability of a clinically significant, sudden or life threatening deterioration of the cardiac system(s) required my full and direct attention, intervention and personal management. The aggregate critical care time was [--] minutes. This time is in addition to time spent performing reported procedures but includes the following: [x] Data Review and interpretation [x] Patient assessment and monitoring of vital signs [x] Documentation [x] Medication orders and management Discharge Plan Departure Patient Disposition: Home Clinical Impression: Atrial fibrillation Instructions: DI for Atrial Fibrillation Activity Restrictions/Additional Instructions: Follow up with your review consultant does not appear that your rate has improved but you still have irregular beats consistent with atrial fibrillation. Reach out to cardiology team for further recommendations. I spoke with your cardiology team I would recommend starting amiodarone 100 mg t.i.d. a prescription was sent to [facility] in [place] Please return for new chest pain or shortness of breath lightheadedness or passing out, increasing swelling of your extremities, or other new or concerning changes. Prescriptions: New amiodarone [Pacerone] 100 mg tablet 100 mg PO TID Qty: 30 0RF No Action amiodarone 200 mg Tablet 200 mg PO DAILY pravastatin 20 mg Tablet 20 mg PO DAILY Patient Comments: for post-op apixaban 5 mg Tablet 5 mg PO BID oxycodone 5 mg Tablet 5 mg PO Q4H PRN (Reason: Pain, Moderate (4-6)) Qty: 40 0RF Referrals: Julian Gonzalez MD [Primary Care Provider] - Stand Alone Forms: Patient Portal/API/Survey
[2024-01-02] MEDS: propofoL 200 MG/20 ML VIAL 85 MG IV (21:57)
--- NOTE | 2024-01-02 22:09 | EKG_ITS ---
[address] [address] Test Date: 2024-01-02 Pat Name: Felipe Winkler Department: [facility] Room: Gender: Male Care Asst: PDV : 1945 Requested By: Order Number: [id number] Reading MD: Shawn Saleh Measurements Intervals [place] Rate: 76 P: 89 GA: QRS: -34 QRSD: 80 T: -20 QT: 382 QTc: 429 Interpretive Statements Atrial flutter with variable AV block Left axis deviation Electronically Signed On 01-03-2024 9:27:04 PST by Shawn Saleh
[2024-01-02] MEDS: AMIODARONE 200 MG TABLET 100 MG PO (22:46)
== END 2024-01-02 22:53 | disposition home or self-care (01) ==
PROVIDERS: Emergency Medicine; Emergency Provider Emergency Medicine; PCP Family Medicine
DX: I48.91 Unspecified atrial fibrillation (principal); R42 Dizziness and giddiness; R07.9 Chest pain, unspecified; Z79.01 Long term (current) use of anticoagulants
CPT/HCPCS: 36415; 71045; 80053; 82550; 83690; 83735; 83880; 84484; 85025; 85610; 85730; 92960; 93005; 99152; 99285; 99291; J2704